=== PATIENT | male | born 1950 | race Caucasian/White ===

== ENCOUNTER → 2020-04-03 19:48 | Outpatient (ROUT) | payer MEDICARE, SELFPAY ==
[2020-04-03 20:19] LABS: HEMOLYSIS < 15 (0-50)
[2020-04-03 20:28] LABS: Aspartate Aminotransferase 32 IU/L (17-59); BUN Creatinine Ratio 10.5 (6-22); Blood Urea Nitrogen 10 mg/dL (9-20); Calcium 9.5 mg/dL (8.4-10.2); Carbon Dioxide 27 mmol/L (22-32); Chloride 102 mmol/L (98-107); Cholesterol 189 mg/dL (140-199); Estimated Glomerular Filt Rate > 60.0 mL/min (>60); Glucose 101 mg/dL (80-110); HDL Cholesterol 82 mg/dL (40-60); LDL Cholesterol Calculated 85 mg/dL (<100); Potassium 4.5 mmol/L (3.4-5.1); Sodium 137 mmol/L (137-145); Triglycerides 112 mg/dL (35-150)
[2020-04-06 16:10] LABS: Prostate Specific Antigen 2.82 ng/mL (0.10-4.00)
== END ==
PROVIDERS: Visit Provider Internal Medicine
DX: E78.2 Mixed hyperlipidemia (principal); I10 Essential (primary) hypertension; N40.1 Benign prostatic hyperplasia with lower urinary tract symptoms
CPT/HCPCS: 80048; 80061; 84153; 84450

== ENCOUNTER → 2022-11-11 09:33 | Outpatient (CLI) | payer MEDICARE, SELFPAY ==
[2022-11-11 10:49] LABS: Mean Corpuscular HGB Conc 27.2 % (30-36); Mean Corpuscular Hemoglobin 16.8 PG (26-34); Mean Corpuscular Volume 61.6 fL (80-100); Platelet Count 490 X10^3/uL (150-400); Red Blood Cell Count 3.21 X10^6/uL (4.5-5.9); Red Cell Distribution Width 28.7 % (11.6-14.8); White Blood Cell Count 5.9 X10^3/uL (4.5-11.0)
[2022-11-11 11:06] LABS: Hematocrit 19.8 % (41-53); Hemoglobin 5.4 g/dL (13.5-17.5)
[2022-11-11 11:07] LABS: HEMOLYSIS < 15 (0-50)
[2022-11-11 11:09] LABS: Alanine Aminotransferase 16 IU/L (<50); Albumin 3.7 g/dL (3.5-5.0); Albumin Globulin Ratio 1.2 (1.0-2.8); Alkaline Phosphatase 64 U/L (38-126); Aspartate Aminotransferase 25 IU/L (17-59); BUN Creatinine Ratio 17.4 (6-22); Bilirubin Total 0.5 mg/dL (0.2-1.3); Blood Urea Nitrogen 16 mg/dL (9-20); Calcium 8.4 mg/dL (8.4-10.2); Carbon Dioxide 27 mmol/L (22-32); Chloride 104 mmol/L (98-107); Cholesterol 127 mg/dL (140-199); Estimated Glomerular Filt Rate > 60 mL/min (>60); Glucose 89 mg/dL (80-110); HDL Cholesterol 69 mg/dL (40-60); HEMOLYSIS < 15 (0-50); LDL Cholesterol Calculated 49 mg/dL (<100); Sodium 136 mmol/L (137-145); Total Protein 6.7 g/dL (6.3-8.2); Triglycerides 45 mg/dL (35-150)
[2022-11-11 11:11] LABS: Iron < 10 ug/dL (49-181)
[2022-11-11 11:17] LABS: Percent Iron Saturation 2 % (20-50); Total Iron Binding Capacity 431 ug/dL (261-462); Transferrin 337 mg/dL (206-381)
[2022-11-11 11:37] LABS: Prostate Specific Antigen 4.63 ng/mL (0.10-4.00)
[2022-11-11 11:38] LABS: TSH w/ Reflex to FT4 2.51 uIU/mL (0.47-4.68)
[2022-11-11 11:41] LABS: Ferritin 7 ng/mL (18-464)
== END ==
PROVIDERS: PCP Internal Medicine; Referring Provider Internal Medicine; Visit Provider Internal Medicine
DX: D50.9 Iron deficiency anemia, unspecified (principal); E78.2 Mixed hyperlipidemia; N40.0 Benign prostatic hyperplasia without lower urinary tract symptoms; I26.94 Multiple subsegmental thrombotic pulmonary emboli without acute cor pulmonale
CPT/HCPCS: 36415; 80053; 80061; 82728; 83540; 83550; 84153; 84443; 85027

== ENCOUNTER → 2022-11-15 13:04 | Outpatient (CLI) | payer MEDICARE, SELFPAY ==
[2022-11-19 13:26] LABS: Fecal Immunochemical Test Negative (Negative)
== END ==
PROVIDERS: PCP Internal Medicine; Referring Provider Internal Medicine; Visit Provider Internal Medicine
DX: R71.8 Other abnormality of red blood cells (principal)
CPT/HCPCS: 82274

== ENCOUNTER → 2022-12-23 09:06 | Outpatient (CLI) | payer MEDICARE, SELFPAY ==
[2022-12-23 10:35] LABS: Basophils Absolute Auto 100 /uL (0-100); Basophils Percent Auto 1.9 % (0-2); Eosinophils Absolute Auto 800 /uL (0-450); Eosinophils Percent Auto 13.3 % (2-4); Hematocrit 37.3 % (41-53); Hemoglobin 11.1 g/dL (13.5-17.5); Lymphocytes Absolute Auto 1300 /uL (1100-4500); Mean Corpuscular HGB Conc 29.7 % (30-36); Mean Corpuscular Hemoglobin 22.9 PG (26-34); Mean Corpuscular Volume 77.1 fL (80-100); Monocytes Absolute Auto 500 /uL (0-900); Monocytes Percent Auto 9.1 % (3-14); Neutrophils Absolute Auto 3200 /uL (1500-7000); Neutrophils Percent Auto 54.7 % (50-75); Platelet Count 418 X10^3/uL (150-400); Red Blood Cell Count 4.84 X10^6/uL (4.5-5.9); Red Cell Distribution Width 29.7 % (11.6-14.8); White Blood Cell Count 5.9 X10^3/uL (4.5-11.0)
[2022-12-23 10:39] LABS: Add Manual Diff / Slide Review SLIDE REVIEW
[2022-12-23 10:42] LABS: HEMOLYSIS < 15 (0-50); Iron 29 ug/dL (49-181)
[2022-12-23 10:53] LABS: Percent Iron Saturation 8 % (20-50); Total Iron Binding Capacity 361 ug/dL (261-462); Transferrin 258 mg/dL (206-381)
[2022-12-23 10:55] LABS: Anisocytosis 2+; Hypochromasia 2+; Microcytosis 2+; Target Cells 1+
[2022-12-23 11:17] LABS: Ferritin 38 ng/mL (18-464)
[2022-12-24 17:07] LABS: Tissue Transglutaminase IgA <2 U/mL (0-3)
== END ==
PROVIDERS: PCP Internal Medicine; Referring Provider Internal Medicine; Visit Provider Internal Medicine
DX: D64.9 Anemia, unspecified (principal); K90.0 Celiac disease
CPT/HCPCS: 36415; 82728; 83516; 83540; 83550; 85025

== ENCOUNTER → 2023-01-02 14:16 | Outpatient (CLI) | payer MEDICARE, SELFPAY ==
[2023-01-02 14:49] LABS: Occult Blood 1 Negative (Negative); Occult Blood 2 Negative (Negative)
[2023-01-02 14:50] LABS: Occult Blood 3 Negative (Negative)
== END ==
PROVIDERS: PCP Internal Medicine; Referring Provider Internal Medicine; Visit Provider Internal Medicine
DX: D50.9 Iron deficiency anemia, unspecified (principal)
CPT/HCPCS: 82270

== ENCOUNTER → 2023-05-05 16:25 | Outpatient (CLI) | payer MEDICARE, SELFPAY ==
[2023-05-05 17:48] LABS: Hematocrit 45.6 % (41-53); Hemoglobin 15.2 g/dL (13.5-17.5); Mean Corpuscular HGB Conc 33.4 % (30-36); Mean Corpuscular Hemoglobin 33.4 PG (26-34); Mean Corpuscular Volume 99.8 fL (80-100); Platelet Count 261 X10^3/uL (150-400); Red Blood Cell Count 4.57 X10^6/uL (4.5-5.9); Red Cell Distribution Width 15.8 % (11.6-14.8); White Blood Cell Count 6.1 X10^3/uL (4.5-11.0)
[2023-05-05 18:27] LABS: BUN Creatinine Ratio 19.8 (6-22); Blood Urea Nitrogen 17 mg/dL (9-20); Calcium 9.4 mg/dL (8.4-10.2); Carbon Dioxide 30 mmol/L (22-32); Chloride 100 mmol/L (98-107); Estimated Glomerular Filt Rate > 60 mL/min (>60); Glucose 96 mg/dL (80-110); HEMOLYSIS < 15 (0-50); Iron 63 ug/dL (49-181); Potassium 4.2 mmol/L (3.4-5.1); Sodium 137 mmol/L (137-145)
[2023-05-05 18:43] LABS: Percent Iron Saturation 20 % (20-50); Total Iron Binding Capacity 311 ug/dL (261-462); Transferrin 231 mg/dL (206-381)
[2023-05-05 18:54] LABS: Ferritin 57 ng/mL (18-464)
[2023-05-08 09:40] LABS: PSA Free % 10.1 % (.)
== END ==
PROVIDERS: PCP Internal Medicine; Referring Provider Internal Medicine; Visit Provider Internal Medicine
DX: R97.20 Elevated prostate specific antigen [PSA] (principal); D50.9 Iron deficiency anemia, unspecified; I26.94 Multiple subsegmental thrombotic pulmonary emboli without acute cor pulmonale
CPT/HCPCS: 36415; 80048; 82728; 83540; 83550; 84153; 84154; 85027

== ENCOUNTER → 2023-07-10 | Outpatient (CLI) | payer OTHER, SELFPAY ==
--- NOTE | 2023-07-10 09:37 | DI.RAD.S_ITS ---
Bone Density Report Name: SERAFIN BATRES Age: 72 Sex: Male Ethnicity: White Date of : 1950 Indication: screening for osteoporosis; Referring Provider: MANDEEP NETTLES Study: Bone densitometry was performed. Exam Date: July 10, 2023 Accession number: [id number] Bone Density: Region BMD T-score Z-score Classification AP Spine(L1-L4) 0.757 -2.6 -2.1 Osteoporosis Femoral Neck (Left) 0.530 -2.9 -1.7 Osteoporosis Total Hip (Left) 0.664 -2.3 -1.8 Osteopenia Femoral Neck (Right) 0.521 -3.0 -1.8 Osteoporosis Total Hip (Right) 0.682 -2.1 -1.6 Osteopenia Total Hip Mean 0.673 -2.2 -1.7 Osteopenia World Health Organization criteria for BMD impression classify patients as: Normal (T-score at or above -1.0), Osteopenia (T-score between -1.0 and -2.5), or Osteoporosis (T-score at or below -2.5). 10-year Fracture Risk: FRAX not reported because: Some T-score for Spine Total or Hip Total or Femoral Neck at or below -2.5 Impression: The patient has osteoporosis, based on the Right Femoral Neck T-score. Discussion: INCREASED RISK OF FRACTURE. BONE DENSITY IS UNDESIRABLY LOW AT ONE OR MORE SKELETAL SITES, CONSISTENT WITH OSTEOPOROSIS. This patient's lowest T-score meets the World Health Organization's (WHO) criteria for osteoporosis at one or more sites (T-score -2.5 or below). In untreated patients, the risk of osteoporotic fracture increases approximately two-fold for each 1.0 SD decrease in T-score. Low bone density is not the only risk factor for fracture; also consider factors such as patient's age, frailty or poor health, risk of falling, risk of injury, previous osteoporotic fracture, family history of osteoporosis, cigarette smoking, low body weight, etc. Not everyone with low bone mineral density has osteoporosis; osteomalacia and other metabolic bone disorders should also be considered. Patients who have osteoporosis should be evaluated for specific diseases and conditions (secondary causes) that may cause or contribute to bone loss. The National Osteoporosis Foundation (NOF) recommends pharmacologic intervention for men with BMD at this level (a T-score of -2.5 or below). The patient should follow a healthful lifestyle (good nutrition with adequate calcium and vitamin D, and appropriate weight-bearing exercise). Follow-Up: Consider repeating this study in 2 years to reassess this patient's status, or sooner if there is some new clinical indication. Reported by: DOROTHY PARKER M.D. on 07/10/2023 10:19:00 AM.
== END ==
PROVIDERS: PCP Internal Medicine; Referring Provider Internal Medicine; Visit Provider Internal Medicine
DX: M81.0 Age-related osteoporosis without current pathological fracture (principal); Z87.311 Personal history of (healed) other pathological fracture; Z92.241 Personal history of systemic steroid therapy
CPT/HCPCS: 77080

== ENCOUNTER → 2023-11-05 14:41 | Outpatient (CLI) | payer MEDICARE, SELFPAY ==
[2023-11-05 15:39] LABS: Hematocrit 44.8 % (41-53); Mean Corpuscular HGB Conc 33.4 % (30-36); Mean Corpuscular Hemoglobin 32.9 PG (26-34); Mean Corpuscular Volume 98.6 fL (80-100); Platelet Count 276 X10^3/uL (150-400); Red Blood Cell Count 4.55 X10^6/uL (4.5-5.9); Red Cell Distribution Width 15.3 % (11.6-14.8); White Blood Cell Count 6.9 X10^3/uL (4.5-11.0)
[2023-11-05 15:44] LABS: HEMOLYSIS < 15 (0-50); Iron 79 ug/dL (49-181)
[2023-11-05 15:46] LABS: Alanine Aminotransferase 16 IU/L (<50); Albumin 4.4 g/dL (3.5-5.0); Albumin Globulin Ratio 1.4 (1.0-2.8); Alkaline Phosphatase 90 U/L (38-126); Aspartate Aminotransferase 24 IU/L (17-59); BUN Creatinine Ratio 23.8 (6-22); Bilirubin Total 0.7 mg/dL (0.2-1.3); Blood Urea Nitrogen 20 mg/dL (9-20); Calcium 9.1 mg/dL (8.4-10.2); Carbon Dioxide 25 mmol/L (22-32); Chloride 106 mmol/L (98-107); Cholesterol 185 mg/dL (140-199); Estimated Glomerular Filt Rate > 60 mL/min (>60); Globulin 3.2 g/dL (1.7-4.1); Glucose 88 mg/dL (80-110); HDL Cholesterol 69 mg/dL (40-60); HEMOLYSIS < 15 (0-50); LDL Cholesterol Calculated 83 mg/dL (<100); Potassium 4.3 mmol/L (3.4-5.1); Sodium 137 mmol/L (137-145); Total Protein 7.6 g/dL (6.3-8.2); Triglycerides 163 mg/dL (35-150)
[2023-11-05 15:57] LABS: Percent Iron Saturation 23 % (20-50); Total Iron Binding Capacity 348 ug/dL (261-462); Transferrin 274 mg/dL (206-381)
[2023-11-05 16:19] LABS: Ferritin 19 ng/mL (18-464)
[2023-11-07 14:29] LABS: PSA Free % 7.6 % (.)
== END ==
PROVIDERS: PCP Internal Medicine; Referring Provider Internal Medicine; Visit Provider Internal Medicine
DX: R97.20 Elevated prostate specific antigen [PSA] (principal); I26.94 Multiple subsegmental thrombotic pulmonary emboli without acute cor pulmonale; E78.2 Mixed hyperlipidemia
CPT/HCPCS: 36415; 80053; 80061; 82728; 83540; 83550; 84153; 84154; 85027

== ENCOUNTER → 2023-11-24 15:59 | Outpatient (CLI) | payer MEDICARE, SELFPAY | PROVIDERS: PCP Internal Medicine; Visit Provider Urology | DX: R39.9 Unspecified symptoms and signs involving the genitourinary system (principal) | CPT/HCPCS: 87086 ==

== ENCOUNTER → 2023-11-29 14:19 | Outpatient (CLI) | payer MEDICARE, SELFPAY ==
--- NOTE | 2023-11-29 14:21 | DI.MRI.S_ITS ---
PROCEDURE: MR PELVIC PROSTATE PROTOCOL INDICATIONS: Elevated PSA, BPH with LUTS TECHNIQUE: Coronal HASTE, axial T1 FSE with fat saturation, 3-plane nonbreath-hold T2 FSE. After the administration of contrast, dynamic axial, delayed axial and coronal VIBE or 2-D FLASH with fat saturation through the pelvis. Diffusion weighted imaging and ADC was performed. COMPARISON: None. FINDINGS: Image quality: Diffusion weighted and dynamic contrast enhanced images are diagnostic. Prostate: Gland size is 4.8 x 3.5 x 3.3 cm; ellipsoid gland volume is 29 mL. Numerous BPH nodules. No significant intrinsic T1 hyperintense foci to suggest hemorrhage. Lesion 1: Location: Right apex peripheral zone, on axial series 5, image 14 and sagittal series 7, image 9. Size: 0.8 x 0.8 cm, (/). T2W signal: Hypointense. DWI signal: Heterogeneous ADC signal: Heterogeneous Enhancement: No Extracapsular extension: No. No neurovascular involvement. PI-RADS score: 3 Lesion 2: Location: Left apex transitional zone, on axial series 5, image 14 and coronal series 3, image 14. Size: 0.6 x 0.5 cm, (5/14). T2W signal: Hypointense. DWI signal: Heterogeneous ADC signal: Heterogeneous Enhancement: Yes Extracapsular extension: No. No neurovascular involvement. PI-RADS score: 3 Genitourinary system: Trabeculated urinary bladder. Distal ureters are non distended. Bowel and peritoneum: No pathologic free pelvic fluid. Inferior colon and small bowel loops are normal in caliber. Nodes and vessels: No pelvic or inguinal adenopathy by size criteria. Iliac vessels are normal in caliber. Soft tissues: Possible fat containing inguinal hernias. Bones: Marrow demonstrates normal overall signal, without lesions to suggest metastases. IMPRESSION: 1. Prominent prostate gland. Numerous BPH nodules. Trabeculated urinary bladder. 2. Right apex peripheral zone observation measuring 0.8 cm. PI-RADS 3. 3. Left apex transitional zone observation measuring 0.6 cm. PI-RADS 3. 4. No enlarged lymph nodes. Dictated by: Steven Tomas M.D. on 12/02/2023 at 13:08 Approved by: Steven Tomas M.D. on 12/02/2023 at 13:23
== END ==
PROVIDERS: PCP Internal Medicine; Referring Provider Urology; Visit Provider Urology
DX: N40.1 Benign prostatic hyperplasia with lower urinary tract symptoms (principal); R35.1 Nocturia; R97.20 Elevated prostate specific antigen [PSA]; N32.89 Other specified disorders of bladder
CPT/HCPCS: 72197; A9579

== ENCOUNTER → 2024-03-09 15:37 | Outpatient (CLI) | payer MEDICARE, SELFPAY ==
[2024-03-09 17:21] LABS: Prostate Specific Antigen 7.46 ng/mL (0.10-4.00)
== END ==
PROVIDERS: PCP Internal Medicine; Referring Provider Urology; Visit Provider Urology
DX: R97.20 Elevated prostate specific antigen [PSA] (principal)
CPT/HCPCS: 36415; 84153

== ENCOUNTER → 2024-03-17 13:17 | Outpatient (CLI) | payer MEDICARE, SELFPAY | PROVIDERS: PCP Internal Medicine; Visit Provider Urology | DX: R39.9 Unspecified symptoms and signs involving the genitourinary system (principal) | CPT/HCPCS: 87086 ==

== ENCOUNTER → 2024-06-25 14:08 | Outpatient (CLI) | payer MEDICARE, SELFPAY | PROVIDERS: PCP Internal Medicine; Referring Provider Urology; Visit Provider Urology | DX: R97.20 Elevated prostate specific antigen [PSA] (principal) | CPT/HCPCS: 84153; 84154 ==

== ENCOUNTER → 2024-07-14 15:20 | Outpatient (CLI) | payer MEDICARE, SELFPAY | PROVIDERS: PCP Internal Medicine; Visit Provider Urology | DX: R97.20 Elevated prostate specific antigen [PSA] (principal); N40.1 Benign prostatic hyperplasia with lower urinary tract symptoms | CPT/HCPCS: 87086 ==

== ENCOUNTER → 2024-10-07 15:14 | Outpatient (CLI) | payer MEDICARE, SELFPAY ==
[2024-10-07 17:16] LABS: Prostate Specific Antigen 6.96 ng/mL (0.10-4.00)
== END ==
PROVIDERS: PCP Internal Medicine; Referring Provider Urology; Visit Provider Urology
DX: N40.1 Benign prostatic hyperplasia with lower urinary tract symptoms (principal); R35.1 Nocturia; R97.20 Elevated prostate specific antigen [PSA]
CPT/HCPCS: 36415; 84153

== ENCOUNTER → 2024-10-13 14:40 | Outpatient (CLI) | payer MEDICARE, SELFPAY | PROVIDERS: PCP Internal Medicine; Visit Provider Urology | DX: N40.1 Benign prostatic hyperplasia with lower urinary tract symptoms (principal); R35.1 Nocturia; R33.9 Retention of urine, unspecified; R82.81 Pyuria; R39.9 Unspecified symptoms and signs involving the genitourinary system; R97.20 Elevated prostate specific antigen [PSA]; Z77.22 Contact with and (suspected) exposure to environmental tobacco smoke (acute) (chronic) | CPT/HCPCS: 51798; 81002; 87086; 99214 ==

== ENCOUNTER → 2024-11-09 14:14 | Outpatient (CLI) | payer MEDICARE, SELFPAY ==
[2024-11-09 15:41] LABS: Hematocrit 28.4 % (41-53); Mean Corpuscular HGB Conc 28.1 % (30-36); Mean Corpuscular Hemoglobin 18.5 PG (26-34); Mean Corpuscular Volume 65.9 fL (80-100); Platelet Count 675 X10^3/uL (150-400); Red Blood Cell Count 4.31 X10^6/uL (4.5-5.9); Red Cell Distribution Width 22.7 % (11.6-14.8); White Blood Cell Count 11.7 X10^3/uL (4.5-11.0)
[2024-11-09 15:51] LABS: HEMOLYSIS < 15 (0-50)
[2024-11-09 15:57] LABS: Alanine Aminotransferase 20 IU/L (<50); Albumin 4.5 g/dL (3.5-5.0); Albumin Globulin Ratio 1.5 (1.0-2.8); Alkaline Phosphatase 76 U/L (38-126); Aspartate Aminotransferase 25 IU/L (17-59); BUN Creatinine Ratio 14.6 (6-22); Bilirubin Total 0.6 mg/dL (0.2-1.3); Blood Urea Nitrogen 13 mg/dL (9-20); Calcium 9.4 mg/dL (8.4-10.2); Carbon Dioxide 22 mmol/L (22-32); Chloride 100 mmol/L (98-107); Cholesterol 178 mg/dL (140-199); Estimated Glomerular Filt Rate > 60 mL/min (>60); Glucose 98 mg/dL (70-99); HDL Cholesterol 85 mg/dL (40-60); LDL Cholesterol Calculated 70 mg/dL (<100); Potassium 5.1 mmol/L (3.4-5.1); Sodium 134 mmol/L (137-145); Total Protein 7.5 g/dL (6.3-8.2); Triglycerides 115 mg/dL (35-150)
[2024-11-09 16:46] LABS: Vitamin B12 Reflex MMA if <400 376 pg/mL (239-931)
== END ==
LOC: LAB 14:15
PROVIDERS: PCP Internal Medicine; Referring Provider Internal Medicine; Visit Provider Internal Medicine
DX: E78.2 Mixed hyperlipidemia (principal); D50.9 Iron deficiency anemia, unspecified; E53.8 Deficiency of other specified B group vitamins
CPT/HCPCS: 36415; 80053; 80061; 82607; 83921; 85027